=== PATIENT | female | born 1980 | race African-American/Black ===

== ENCOUNTER 2016-12-20 19:23 | Emergency (ER) | payer OTHER ==
[~2016-12-20] VITALS: Ht 152.4 cm; Wt 90.3 kg
--- NOTE | ~2016-12-20 | CR63 ---
[facility] A Service of [facility] RADIOLOGY TEXT RESULTS PATIENT: WILLIE DE LOCATION: SED : [birth year] UNIT #: [id number] AGE: [address]: Edil Maxwell MD SEX: F ORDER DR: [id number] [address] [address] [id number] MR#: [id number] Acc #: [id number] NAME: WILLIE DE : 1980 SEX: F STUDY DATE/TIME: 12/20/2016 20:22 UNIT: SED ROOM: STUDY DESCRIPTION: CR Chest 2 View Attending Physician: Edil Maxwell M.D. Ordering Physician: Edil Maxwell M.D. MEDICAL IMAGING REPORT This report is preliminary unless electronic signature is present. EXAM Chest 2 views 12/20/2016, 20:22 hours. HISTORY 36-year-old woman with chest tightness, shortness of air, cough for 2 days history of asthma. COMPARISON Chest film from shunt series 06/21/2013. FINDINGS Upright PA and lateral views of the chest demonstrate normal cardiac, mediastinal and hilar contours. There is stable underlying scoliosis. There is mild increased density at the medial right lung base which could represent atelectasis or pneumonia. This is not well, seen on the lateral film. There are no effusions. No pneumothorax. IMPRESSION Minimal patchy density at the medial right lung base on the PA view could represent atelectasis or pneumonia. This is not seen on the comparison study 06/21/2013. APPLICATIONS SUPPORT LEAD shunt catheters in the right chest unchanged. Dictated by... Betty Perkins M.D. THIS IS AN ELECTRONICALLY VERIFIED REPORT Betty Perkins M.D. at 12/22/2016 8:41 AM SMM/gz TD: 12/21/2016 13:57 JOB #: [id number] [facility] A Service of [facility] RADIOLOGY TEXT RESULTS PATIENT: WILLIE DE LOCATION: SED : 82 UNIT #: [id number] AGE: [address]: Edil Maxwell MD SEX: F ORDER DR: MEDICAL IMAGING REPORT Page 1 of 1
[2016-12-20] MEDS ORDERED: ALBUTEROL17 GM (19:29)
[2016-12-20] MEDS ORDERED: DULERA 100 MCG/13 GM (19:29)
[2016-12-20] MEDS ORDERED: SYMBICORT80 (19:29)
[2016-12-20] MEDS ORDERED: FLOVENT7.9 GM (19:29)
[2016-12-20 20:58] LABS: BASOPHIL# 0.1 X10e3 (0-0.3); BASOPHIL% 0.6 % (0-2.5); EOSINOPHIL# 0.8 X10e3 (0-0.7); EOSINOPHIL% 7.2 % (0.0-7.0); HEMATOCRIT 42.4 % (35.0-45.0); HEMOGLOBIN 14.3 gm/dL (12.0-16.0); LYMPHOCYTE# 2.5 X10e3 (1.0-3.5); LYMPHOCYTE% 23.8 % (17.0-45.0); MEAN CELL VOLUME 86.4 FL (83-96); MEAN CORPUSCULAR HEMOGLOBIN 29.1 PG (28-34); MEAN CORPUSCULAR HGB CONC 33.7 g/dL (30-36); MEAN PLATELET VOLUME 9.7 FL (6.5-11.5); MONOCYTE# 0.9 X10e3 (0-1.0); MONOCYTE% 8.2 % (3.0-12.0); NEUTROPHIL# 6.4 X10e3 (1.5-7.1); NEUTROPHIL% 60.2 % (40-75); PLATELET COUNT 248 X10e3 (140-420); WHITE BLOOD COUNT 10.6 X10e3 (4.0-10.5)
[2016-12-20 20:59] LABS: DIFF IND NO
[2016-12-20 21:15] LABS: ALBUMIN SERUM 4.1 g/dL (3.5-5.0); BILIRUBIN, DIRECT 0.1 mg/dL (0.0-0.2); BILIRUBIN,INDIRECT 0.2 mg/dL (0.0-0.9); BILIRUBIN,TOTAL 0.3 mg/dL (0.2-2.0); BUN/CREATININE RATIO 17.14; CALCIUM SERUM 8.6 mg/dL (8.4-10.2); CREATININE SERUM 0.7 mg/dL (0.6-1.4); GLOM FILT RATE Estimated 130.1 mL/min (>60); POTASSIUM 3.2 mmol/L (3.5-5.1); PROTEIN TOTAL SERUM 7.4 g/dL (6.0-8.3)
== END 2016-12-20 22:03 | disposition home or self-care (01) ==
LOC: SED 19:23
PROVIDERS: Emergency Medicine
DX: J18.1 Lobar pneumonia, unspecified organism (principal); E87.6 Hypokalemia; G43.909 Migraine, unspecified, not intractable, without status migrainosus; Z98.51 Tubal ligation status; Z98.890 Other specified postprocedural states
CPT/HCPCS: 36415; 71020; 80048; 80076; 85025; 94640; 99285

== ENCOUNTER → 2017-01-01 | Outpatient (CLI) | payer OTHER ==
[~2017-01-01] MED LIST: ALBUTEROL17 GM; DULERA 100 MCG/13 GM; FLOVENT7.9 GM; SYMBICORT80
[2017-01-01 11:22] LABS: BASOPHIL# 0.1 X10e3 (0-0.3); BASOPHIL% 0.9 % (0-2.5); DIFF IND NO; EOSINOPHIL# 0.5 X10e3 (0-0.7); EOSINOPHIL% 5.2 % (0.0-7.0); HEMATOCRIT 43.3 % (35.0-45.0); HEMOGLOBIN 14.4 gm/dL (12.0-16.0); MEAN CELL VOLUME 85.8 FL (83-96); MEAN CORPUSCULAR HEMOGLOBIN 28.5 PG (28-34); MEAN CORPUSCULAR HGB CONC 33.2 g/dL (30-36); MEAN PLATELET VOLUME 9.5 FL (6.5-11.5); MONOCYTE# 0.7 X10e3 (0-1.0); MONOCYTE% 7.7 % (3.0-12.0); NEUTROPHIL# 6.1 X10e3 (1.5-7.1); NEUTROPHIL% 65.2 % (40-75); PLATELET COUNT 251 X10e3 (140-420); RED BLOOD COUNT 5.04 X10e (3.90-5.30); RED CELL DISTRIBUTION WIDTH 13.8 % (11.0-15.5); WHITE BLOOD COUNT 9.4 X10e3 (4.0-10.5)
== END | disposition home or self-care (01) ==
LOC: CLAB 10:39
PROVIDERS: Allergy & Immunology
DX: J30.1 Allergic rhinitis due to pollen (principal); J45.40 Moderate persistent asthma, uncomplicated; T78.1XXA Other adverse food reactions, not elsewhere classified, initial encounter; J30.89 Other allergic rhinitis; H10.45 Other chronic allergic conjunctivitis
CPT/HCPCS: 36415; 82784; 85025